=== PATIENT | male | born 1950 | race Native Hawaiian/Other Pacific Islander ===

== ENCOUNTER 2020-02-01 07:54 | Outpatient (CLI) | payer OTHER ==
[~2020-02-01 07:54] MED LIST: ASPIRIN ADULT L81 MG OR; BYSTOLIC5 MG PO; CLOP75TA2 PO; CYCL10TA35 PO; PREDNISONE10 M1 PO
== END 2020-02-01 19:03 | disposition home or self-care (01) ==
LOC: NM 07:54
DX: R06.09 Other forms of dyspnea (principal)
CPT/HCPCS: A9500

== ENCOUNTER 2023-05-13 08:18 | Outpatient (CLI) | payer OTHER ==
[2023-05-13 08:28] LABS: PLATELET COUNT 336 K/uL (142-355)
[2023-05-13 08:37] LABS: POTASSIUM 4.6 mmol/L (3.6-5.2)
== END 2023-05-13 18:53 | disposition home or self-care (01) ==
LOC: LAB 08:18
PROVIDERS: ATTEND Internal Medicine Cardiovascular Disease
DX: Z79.899 Other long term (current) drug therapy (principal)
CPT/HCPCS: 36415; 80053; 80061; 85027